=== PATIENT | female | born 1965 | race Caucasian/White ===

== ENCOUNTER 2020-11-20 13:30 | Emergency (ER) | payer BC, OTHER ==
[~2020-11-20 13:30] MED LIST: BACTRIM DS TAB1 EACH PO; KEFLEX CAP 500500 MG PO; LODINE CAP 300300 MG PO; NAPROSYN500 MG PO; NORCO 5-325 TA1 EACH PO
== END 2020-11-20 16:00 | disposition left against medical advice (07) ==
LOC: ER1 13:30
DX: Z53.21 Procedure and treatment not carried out due to patient leaving prior to being seen by health care provider (principal)

== ENCOUNTER 2021-04-14 08:44 | Emergency (ER) | payer OTHER ==
[~2021-04-14] VITALS: Ht 170.2 cm; Wt 59.9 kg
[2021-04-14 09:43] LABS: HEMOGLOBIN 15.4 gm/dl (12.3-15.3); RED BLOOD COUNT 5.1 M/UL (4.00-5.10); WHITE BLOOD COUNT 5.4 K/UL (4.5-11.0)
[2021-04-14 10:09] LABS: BUN/CREATININE RATIO 11 (0-10)
[2021-04-14] MEDS ORDERED: PROAIR HFA8.5 GM INH (13:15)
[2021-04-14] MEDS ORDERED: ZOFRAN ODT 4 MG4 MG SL (13:15)
[2021-04-14] MEDS ORDERED: TESSALON PERLE100 MG PO (13:15)
== END 2021-04-14 14:04 | disposition home or self-care (01) ==
LOC: ER1 08:44
PROVIDERS: Emergency Medicine
DX: Z23 Encounter for immunization (principal); U07.1 COVID-19; I50.9 Heart failure, unspecified; J44.9 Chronic obstructive pulmonary disease, unspecified; F17.200 Nicotine dependence, unspecified, uncomplicated
CPT/HCPCS: 71045; 80053; 82550; 82553; 83605; 83690; 83735; 83874; 84484; 85025; 87040; 93005; 94664; 94760; 96374; 99284; J2405; J7040; M0243; U0002

== ENCOUNTER 2022-01-18 17:59 | Emergency (ER) | payer OTHER ==
[~2022-01-18 17:59] MED LIST changes: +PROAIR HFA8.5 GM INH; +TESSALON PERLE100 MG PO; +ZOFRAN ODT 4 MG4 MG SL
== END 2022-01-18 18:55 | disposition left against medical advice (07) ==
LOC: ER1 17:59
DX: Z53.21 Procedure and treatment not carried out due to patient leaving prior to being seen by health care provider (principal)
CPT/HCPCS: 93005